=== PATIENT | male | born 1940 | race Caucasian/White ===

== ENCOUNTER 2019-06-29 09:00 | Outpatient (RCR) | payer MEDICARE, BC ==
[2015-11-18 19:53] VITALS: BP 118/62
[~2019-06-29 09:00] MED LIST: BENICAR HCT 12.1 TA1 PO; CELEBREX 200MG200 MG PO; CRESTOR40 MG PO; METOPROLOL SUCC25 M1 PO
== END 2019-08-13 | disposition still patient (30) ==
LOC: PT
DX: M17.11 Unilateral primary osteoarthritis, right knee (principal)

== ENCOUNTER 2021-07-10 09:50 | Outpatient (RCR) | payer MEDICARE, BC | END 2021-10-08 | disposition home or self-care (01) | LOC: PT | DX: M54.16 Radiculopathy, lumbar region (principal) ==

== ENCOUNTER 2023-07-23 09:09 | Outpatient (RCR) | payer MEDICARE, BC ==
[~2023-07-23 09:09] MED LIST changes: +ASPIRIN 81M81 MG/TA2 PO; +FISH OIL1 IU PO; +NATURAL LUTEIN20 MG PO
== END 2023-08-01 | disposition home or self-care (01) ==
LOC: OT
DX: G56.03 Carpal tunnel syndrome, bilateral upper limbs (principal); G56.20 Lesion of ulnar nerve, unspecified upper limb; Z98.890 Other specified postprocedural states

== ENCOUNTER 2024-04-12 21:52 | Emergency (ER) | payer MEDICARE, BC ==
[~2024-04-12] VITALS: Ht 185.4 cm; Wt 106.4 kg
[~2024-04-12 21:52] MED LIST changes: +CLOPIDOGREL75 M2 PO; +MORGIDOX 1X100100 MG PO
[2024-04-12 22:56] LABS: BASO # 0.01 K/mm3 (0.02-0.10); EOS # 0.06 K/mm3 (0.04-0.40); EOS % 0.5 % (0.0-4.0); HEMATOCRIT 36.4 % (42.0-52.0); LYMPH# 1.35 K/mm3 (1.50-4.00); MEAN CELL VOLUME 89 fl (78-100); MEAN CORPUSCULAR HEMOGLOBIN 30 pg (27-31); MEAN CORPUSCULAR HGB CONC 33 g/dL (33-37); MEAN PLATELET VOLUME 9.3 fl (7.4-10.4); MONO # 1.04 K/mm3 (0.20-0.80); NEU # 9.32 K/mm3 (1.40-6.50); PLATELET COUNT 169 K/mm3 (130-400); RED BLOOD COUNT 4.07 M/mm3 (4.20-5.60); RED CELL DISTRIBUTION WIDTH 12.8 % (11.5-14.5); WHITE BLOOD COUNT 11.8 K/mm3 (4.8-10.8)
[2024-04-12 23:00] LABS: ALBUMIN 4.3 g/dL (3.4-4.8)
[2024-04-12] MEDS ORDERED: NS 1,000 ML IV ONE (23:00)
[2024-04-12 23:01] LABS: SODIUM 141 mmol/L (136-145)
[2024-04-12 23:02] LABS: CALCIUM 9.5 mg/dL (8.3-10.5)
[2024-04-12 23:03] LABS: GLUCOSE 167 mg/dL (75-110); TOTAL PROTEIN 6.6 g/dL (6.2-8.1)
[2024-04-12 23:04] LABS: CARBON DIOXIDE 22 mmol/L (23-31)
[2024-04-12 23:05] LABS: TOTAL BILIRUBIN 0.5 mg/dL (0.2-1.2)
[2024-04-12 23:08] LABS: AST-SGOT 21 U/L (5-34)
[2024-04-12 23:09] LABS: ALT/SGPT 18 U/L (0-55)
[2024-04-12 23:10] LABS: LIPASE 23 U/L (8-78)
[2024-04-12 23:16] LABS: TROPONIN-I < 0.030 ng/mL (0.00-0.033)
[2024-04-12] MEDS ORDERED: traMADol 50 MG TAB PO ONE (23:30)
[2024-04-13] MEDS ORDERED: Piperacillin/Tazobactam Sodium 3.375 GM in NS 100 ML IV ONE (01:30)
[2024-04-13] MEDS ORDERED: AMOXICILLIN AND1 TA2 PO (01:49)
[2024-04-13 03:00] VITALS: BP 121/60
== END 2024-04-13 03:00 | disposition home or self-care (01) ==
LOC: ED 21:52
PROVIDERS: Family Medicine
DX: K52.9 Noninfective gastroenteritis and colitis, unspecified (principal); Z87.19 Personal history of other diseases of the digestive system
CPT/HCPCS: J2543; J7030